=== PATIENT | male | born 1985 | race Two or more races ===

== ENCOUNTER 2020-07-02 18:45 | Emergency (ER) | payer OTHER ==
[~2020-07-02] VITALS: Ht 177.8 cm; Wt 93.2 kg
[2020-07-02 18:45] VITALS: BP 110/70
--- NOTE | 2020-07-02 18:56 | PHYS DOC ---
General Adult HPI: HPI: ".. My and daughter got a flu bug... and now I think I got it... Had nausea , vomiting,... I got hurt all over.. 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 Patient denies any recent travel. Patient not had any recent overseas assignments. Is up-to-date with [facility]. No history of severe intake bad food. Patient's and daughter have had similar symptoms. Patient normally follows at [place]. Patient normally healthy. Patient not been exposed to any animals. Review of Systems: Review of Systems: Constitutional: Objective history of fever or chills Eyes: Denies change in visual acuity HENT: Denies nasal congestion or sore throat Respiratory: Denies cough or shortness of breath Cardiovascular: Denies chest pain or edema GI: Complains of generalized crampy abdominal pain, nausea, vomiting,. Denies bloody stools or diarrhea : Denies dysuria Musculoskeletal: Generalized arthralgia myalgia Integument: Denies rash Neurologic: Denies headache, focal weakness or sensory changes Endocrine: Denies polyuria or polydipsia Lymphatic: Denies swollen glands Psychiatric: Denies depression or anxiety Family History: Family History: and daughter had similar symptoms Current Medications: Current Meds: See nursing for home meds Allergies: Allergies: No known drug allergies Physical Exam: PE: Constitutional: Well developed, well nourished, moderate acute distress, non- toxic appearance. [] HENT: Normocephalic, atraumatic, bilateral external ears normal, oropharynx moist, no oral exudates, nose slightly swollen turbinates with clear rhinorrhea Eyes: PERRLA, EOMI, conjunctiva normal, no discharge. [] Neck: Normal range of motion, no tenderness, supple, no stridor. [] Cardiovascular:Heart rate regular rhythm, no murmur [] Lungs & Thorax: Bilateral breath sounds equal apex on auscultation [] Abdomen: Bowel sounds hyperactive,, soft, generalized tenderness, no masses, no pulsatile masses. No focal area of rebound Skin: Warm, dry, no erythema, no rash. [] Back: No tenderness, no CVA tenderness. [] Extremities: Generalized arthralgia and myalgia complaints, no cyanosis, no clubbing, ROM intact, no edema. [] No psoas sign. Neurologic: Alert and oriented X 3, normal motor function, normal sensory function, no focal deficits noted. [] Psychologic: Affect anxious, judgement normal, mood normal. [] EKG: EKG: [] Radiology/Procedures: Radiology/Procedures: [] Heart Score: Risk Factors: Risk Factors: DM, Current or recent (<one month) smoker, HTN, HLP, family history of CAD, obesity. Risk Scores: Score 0 - 3: 2.5% MACE over next 6 weeks - Discharge Home Score 4 - 6: 20.3% MACE over next 6 weeks - Admit for Clinical Observation Score 7 - 10: 72.7% MACE over next 6 weeks - Early Invasive Strategies Course & Med Decision Making: Course & Med Decision Making Pertinent Labs and Imaging studies reviewed. (See chart for details) Patient take Tylenol and ibuprofen for pain. May take Zofran 8 mg with 4 times a day for nausea and vomiting. For marked discomfort may take Vicoprofen up to 4 times a day. Follow-up with [facility] get a rapid Covid test. Remain on a clear fluid diet for the next 24 to 48 hours no solids. No milk products. Allow bowel rest. Self isolate. Return if any concerns. Impression: 1. Viral syndrome [] Bailee Disclaimer: Bailee Disclaimer: This electronic medical record was generated, in whole or in part, using a voice recognition dictation system. Departure Departure: Referrals: PCP,NO (PCP) Scripts Hydrocodone/Ibuprofen (HYDROCODONE-IBUPROFEN 7.5-200 ) 1 Each Tablet 1 TAB PO PRN Q6HRS PRN for PAIN, #30 TAB 0 Refills Prov: IVA CURRAN MD 07/02/20 Ondansetron Hcl (ZOFRAN) 4 Mg Tablet 8 MG PO QIDPRN for n/v for 30 Days, #30 TAB Prov: IVA CURRAN MD 07/02/20 IVA CURRAN MD Jul 02, 2020 18:56
[2020-07-02] MEDS ORDERED: ONDANSETRON ODT 4 MG TAB.RAPDIS ONE (19:08)
[2020-07-02] MEDS ORDERED: ONDA4TAB7 PO (19:40)
[2020-07-02] MEDS ORDERED: HYDR-1179 PO (19:40)
[2020-07-02] MEDS ORDERED: ONDANSETRON ODT 4 MG TAB.RAPDIS PO ONE (19:45)
== END 2020-07-02 19:41 | disposition home or self-care (01) ==
LOC: ER 18:45
DX: B34.9 Viral infection, unspecified (principal)
CPT/HCPCS: 99283; Q0162